=== PATIENT | female | born 1990 | race Caucasian/White ===

== ENCOUNTER 2018-06-28 14:31 | Emergency (ER) | payer OTHER, BC ==
[~2018-06-28] VITALS: Ht 162.6 cm; Wt 107.2 kg
[2018-06-28] MEDS ORDERED: LIORESAL10 MG PO (16:52)
[2018-06-28] MEDS ORDERED: MOTRIN800 MG PO (16:52)
[2018-06-28 17:14] VITALS: BP 154/112
== END 2018-06-28 17:16 | disposition home or self-care (01) ==
LOC: EME 14:31
PROC: 3E0234Z Introduction of Serum, Toxoid and Vaccine into Muscle, Percutaneous Approach (ICD-10-PCS; principal; 2018-06-28)
DX: S60.222A Contusion of left hand, initial encounter (principal); S50.12XA Contusion of left forearm, initial encounter; S60.512A Abrasion of left hand, initial encounter; M79.1 Myalgia; V43.52XA Car driver injured in collision with other type car in traffic accident, initial encounter; Y92.410 Unspecified street and highway as the place of occurrence of the external cause; Z23 Encounter for immunization
CPT/HCPCS: 73090; 73130; 99281; 99283